=== PATIENT | female | born 1950 | race Caucasian/White ===

== ENCOUNTER 2019-02-01 01:35 | Emergency (ER) | payer BC, MEDICARE, OTHER ==
[2019-02-01 02:12] LABS: BASOPHILS # (AUTO) 0.1 10^3/uL (0.0-0.1); BASOPHILS % (AUTO) 0.7 %; EOSINOPHILS # (AUTO) 0.4 10^3/uL (0.0-0.7); EOSINOPHILS % (AUTO) 4.8 %; HGB - HEMOGLOBIN 12.2 g/dL (12.0-16.0); LYMPHOCYTES # (AUTO) 2.5 10^3/uL (1.5-3.5); LYMPHOCYTES % (AUTO) 28.7 %; MEAN CORPUSCULAR HEMOGLOBIN 28.6 pg (27.0-31.0); MEAN CORPUSCULAR HGB CONC 33.1 g/dL (32.0-36.0); MEAN CORPUSCULAR VOLUME 86.6 fL (81.0-99.0); MEAN PLATELET VOLUME 10.4 fL (7.9-10.8); MONOCYTES # (AUTO) 0.7 10^3/uL (0.0-1.0); MONOCYTES % (AUTO) 8.3 %; NEUTROPHILS % (AUTO) 57.2 %; PLT - PLATELET COUNT 232 10^3/uL (130-450); RED BLOOD COUNT 4.26 10^6/uL (4.20-5.40); RED CELL DISTRIBUTION WIDTH 13.2 % (12.0-15.0); WHITE BLOOD COUNT 8.7 x10^3/uL (4.8-10.8)
--- NOTE | 2019-02-01 02:28 | XRAY Report ---
Reason: chest pain Procedure Date: 02/01/2019 Accession Number: [id number] / [id number] Procedure: XR - Chest 1 View X-Ray CPT Code: 41002 Final Report FULL RESULT: EXAM: CHEST RADIOGRAPHY EXAM DATE: 02/01/2019 02:23 AM. CLINICAL HISTORY: Chest pain. COMPARISON: None. TECHNIQUE: 1 view. FINDINGS: Lungs/Pleura: No alveolar consolidation or pleural effusion seen. No pneumothorax. Mediastinum: Within exam limitations, the cardiomediastinal contour is normal. 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 IMPRESSION: 1. No acute abnormality seen in the chest. RADIA
[2019-02-01 02:48] LABS: ALBUMIN 3.4 g/dL (3.2-5.5); ALBUMIN/GLOBULIN RATIO 1.1 (1.0-2.2); BILIRUBIN,TOTAL 0.4 mg/dL (0.2-1.0); CALCIUM 8.8 mg/dL (8.5-10.3); CREATININE 0.7 mg/dL (0.4-1.0); TOTAL PROTEIN 6.4 g/dL (6.7-8.2)
--- NOTE | 2019-02-01 03:25 | ED Physician Documentation ---
PD HPI CHEST PAIN - Stated complaint Stated Complaint: CHEST PX - Chief complaint Chief Complaint: Cardiac - History obtained from History obtained from: Patient - History of Present Illness Timing - onset: Last night Timing - onset during: Rest Timing - duration: Minutes Timing - details: Abrupt onset, Now resolved, Intermittant Pain level max: 3 Pain level now: 0 Quality: Tightness Location: Left chest Radiation: Jaw, Neck Improved by: Nothing Worsened by: Other (no exacerbating factors) Associated symptoms: Shortness of air (mild). No: Diaphoresis, Nausea, Feeling faint / dizzy Similar symptoms before: Has not had sx before Recently seen: Not recently seen Review of Systems Constitutional: reports: Reviewed and negative Cardiac: reports: Chest pain / pressure. denies: Palpitations, Pedal edema Respiratory: reports: Dyspnea (mild, with chest pain). denies: Cough GI: reports: Reviewed and negative : denies: Dysuria, Frequency Musculoskeletal: reports: Reviewed and negative Neurologic: reports: Reviewed and negative PD PAST MEDICAL HISTORY - Past Medical History Past Medical History: Yes GI: Other Other Past Medical History: Bilat Breast CA - Past Surgical History Past Surgical History: Yes Ortho: Hip replacement - Social History Does the pt smoke?: No Smoking Status: Never smoker Does the pt drink ETOH?: Yes ETOH Use: Wine, Liquor Does the pt have substance abuse?: No - Immunizations Immunizations are current?: Yes - POLST Patient has POLST: No PD ED PE NORMAL - Vitals Vital signs reviewed: Yes - General General: Alert and oriented X 3, No acute distress, Well developed/nourished - Cardiac Cardiac: RRR, No murmur, No gallop, No rub - Respiratory Respiratory: No respiratory distress, Clear bilaterally - Abdomen Abdomen: Soft, Non tender - Derm Derm: Normal color, Warm and dry - Extremities Extremities: No edema Results - Vitals Vitals: Oxygen O2 Source Room air - EKG (time done) No standard instances Rate: Rate (enter#) (70) Rhythm: NSR [place]: Normal Intervals: Normal NC QRS: Normal Ischemia: Normal ST segments - Labs Labs: Laboratory Tests 02/01/19 02/01/19 02/01/19 02:03 02:03 02:03 WBC 8.7 RBC 4.26 Hgb 12.2 Hct 36.9 L MCV 86.6 MCH 28.6 MCHC 33.1 RDW 13.2 Plt Count 232 MPV 10.4 Neut # (Auto) 5.0 Lymph # (Auto) 2.5 [place] # (Auto) 0.7 Eos # (Auto) 0.4 Baso # (Auto) 0.1 Absolute Nucleated RBC 0.00 Nucleated RBC % 0.0 Sodium 141 Potassium 3.9 Chloride 107 Carbon Dioxide 25 Anion Gap 9.0 BUN 17 Creatinine 0.7 Estimated GFR (MDRD) 83 L Glucose 108 H Calcium 8.8 Total Bilirubin 0.4 AST 16 ALT 20 Alkaline Phosphatase 40 L Troponin I High Sens < 2.3 L Total Protein 6.4 L Albumin 3.4 Globulin 3.0 Albumin/Globulin Ratio 1.1 Lipase 28 02/01/19 04:00 WBC RBC Hgb Hct MCV MCH MCHC RDW Plt Count MPV Neut # (Auto) Lymph # (Auto) [place] # (Auto) Eos # (Auto) Baso # (Auto) Absolute Nucleated RBC Nucleated RBC % Sodium Potassium Chloride Carbon Dioxide Anion Gap BUN Creatinine Estimated GFR (MDRD) Glucose Calcium Total Bilirubin AST ALT Alkaline Phosphatase Troponin I High Sens < 2.3 L Total Protein Albumin Globulin Albumin/Globulin Ratio Lipase - Rads (name of study) chest xray Radiology: Prelim report reviewed, See rad report PD MEDICAL DECISION MAKING - ED course Complexity details: reviewed results, re-evaluated patient, considered differential, d/w patient Departure - Departure Disposition: 01 Home, Self Care Clinical Impression: Chest pain Condition: Good Instructions: ED Chest Pain Atypical Unkn Cause Discharge Date/Time: 02/01/19 05:03
[2019-02-01 05:02] VITALS: BP 134/80
== END 2019-02-01 05:03 | disposition home or self-care (01) ==
LOC: ED 01:35
DX: R07.89 Other chest pain (principal); R06.02 Shortness of breath
CPT/HCPCS: 36415; 71045; 80053; 83690; 84484; 85025; 93005; 99284

== ENCOUNTER 2021-08-17 11:35 | Outpatient (CLI) | payer BC, MEDICARE, OTHER ==
[2021-08-17 12:25] VITALS: BP 142/76
--- NOTE | 2021-08-17 12:25 | SLEEP CARE CONSULTATION ---
Information from patient questionnaire entered by Acacia Garland. I have reviewed and concur with the information entered by Acacia Garland. This document represents the service I personally performed and the decisions made by me, Akhil Capps MD, [facility]. History of Present Illness Service Date and Time: 08/17/2021 1135 Reason for Visit: New patient (INITIAL, FIRST COMPLIANCE, 05/18 SETUP, RESMED) Date of Onset: YEARS, NO SYMPTOMS WITH CPAP Usual bedtime: 11PM-2AM Time it takes to fall asleep: ABOUT 15 MINUTES Snores at night: Yes (NO SNORING WITH CPAP) Observed to quit breathing while asleep: No Sleeps alone due to snoring: No Number of times waking at night: 1 WITH CPAP Reasons for waking at night: reports: Bathroom Toss, Turn, or Twitch while sleeping: Yes (VERY LITTLE WITH CPAP) Recalls having dreams: Yes Usually gets out of bed at: 830-10AM Feels refreshed in the morning: Yes Morning headache: No Sleepy or fatigued during the day: No Ever fallen asleep while driving: No Takes day naps: No (RARELY SINCE CPAP) Dreams during day naps: No Prior sleep studies: Yes ([facility] ) Year and Where: [facility], 22 Additional HPI information: I have the pleasure of seeing Ms. Ibarra today regarding obstructive sleep apnea. As you know, she is a 71-year-old lady who was diagnosed with the sleep- disordered breathing at [facility] in [place]. On her first in-laboratory polysomnography on 04/07, the AHI was per Medicare standards was only 2.4. The sleep study was repeated 10 days later with her sleeping only on her back and the AHI went up to 20.5. Even though she normally does not sleep on her back at home, she was prescribed a CPAP device. The compliance data show usage in 59 out of the past 60 nights, averaging 8.6 hours a night. The residual AHI is 1.0 and average air leak is 0.2 L/minute. Her CPAP is set between 4 and 14 cmH2O. She wears a [employer]ics DreamWear nasal cushion mask. She reports some improvement in her fatigue and complete resolution of her snore. The equipment came from [employer]. - Parasomnia Symptoms Ever been unable to move upon waking from sleep: No Walks in sleep: No Talks in sleep: No Ever acted out dreams in sleep: No Ever felt weak in the knees when startled or emotional: No Bothered by creepy, crawly, restless sensations in legs: No Problems with memory or concentration: Yes (SOMETIMES) Subjective Initial [place] Sleepiness Scale score: 6 Past Medical History Past Medical History: reports: Claustrophobia, Arthritis, Anxiety, Asthma, Depression, Attention deficit, Other (ARTHRITIC HIP) Social History The patient's occupation is a RE. Patient is Single and lives in [place]. Have you smoked in the past 12 months: No Alcohol use: Yes Alcohol amount and frequency: WINE, 1-2 GLASSES 2-3 TIMES PER WEEK Caffeine use: Yes Caffeine amount and frequency: 1 CUP DAILY Family History Family Hx Sleep Apnea: Sibling: Snoring, Sleep apnea - Treated, Sleep apnea - Untreated Allergies and Home Medications Known drug allergies: Yes (CODEINE ) Drug allergies reviewed: Yes Home medication list reviewed: Yes Review of Systems Cardiovascular: reports: high blood pressure, leg or foot swelling Respiratory: denies: shortness of breath, wheeze, sputum production, chronic cough, other Gastrointestinal: denies: heartburn, difficulty swallowing, nausea, vomitting, diarrhea, abdominal pain, other Urinary: denies: incontinence, frequency, urgency, impotence, other Neurological: denies: headaches, seizure, head trauma, disorientation, speech dysfunction, gait or balance problems, fainting or unconsciousness, other Psychiatric: reports: Attention Deficit Hyperactivity, anxiety, depression, claustrophobia Ear/Nose/Throat: reports: nasal congestion (SOMETIMES), sinus problems (SOMETIME S), wisdom teeth removed Endocrine: reports: sluggishness (BETTER SINCE CPAP ) Musculoskeletal: reports: joint pain, muscle pain or cramping, mobility problems Immunologic: denies: sneezing, rash, itching, allergies to food or environment, other Physical Exam Vital signs obtained and entered by: DANN, [employer] Blood Pressure: 142/76 (left arm ) Cuff size: regular Heart Rate: 80 O2 Saturation: 97 Height: 5 ft 3 in Weight: 194 lb Body Mass Index: 34.3 BMI Classification: Obese HEENT: No craniofacial malformation Nostrils: patent to airflow Turbinates: normal Septum: midline Mouth and throat: narrow oropharynx Soft palate: long Hard palate: normal Uvula: normal Uvula visualization: 50% Mallampati Class II Tongue: normal in size Tonsils: small Chin and jaw: normal size and position Neck: normal w/o lymphadenopathy or thyromegaly Heart: regular rate and rhythm, murmur Lungs: clear bilaterally Extremities: no edema or clubbing Neurologic: intact Impression and Plan IMPRESSION: 1. Obstructive Sleep Apnea-Hypopnea Syndrome, as previously diagnosed. The sleep-disordered breathing appears to be positional. She has good CPAP compliance. The current pressure setting appears effective and comfortable. I informed her that if she is sure she does not sleep on her back at home, she may use the CPAP on as needed basis. Plan: 1. Continue with autoCPAP set at 4 14 cmH2O. 2. Avoid sleeping supine if not using her CPAP. 3. Try to lose weight. 4. Return for follow up in a year or earlier if there is any problem. Counseling Topics: Weight control Follow up with Sleep Care in: 1 year Visit Type: In Office Time Spent with Patient (minutes): 20 Provider Statement: I spent 100% of the Face to Face Visit with the patient with greater than 50% spent counseling the patient and coordination of care.
== END 2021-08-17 11:36 | disposition home or self-care (01) ==
LOC: SC 11:35
PROVIDERS: ATTEND Internal Medicine Pulmonary Disease
DX: G47.33 Obstructive sleep apnea (adult) (pediatric) (principal); E66.9 Obesity, unspecified; Z68.34 Body mass index [BMI] 34.0-34.9, adult
CPT/HCPCS: 99202; 99212

== ENCOUNTER 2021-12-26 06:51 | Emergency (ER) | payer MEDICARE, BC, OTHER ==
--- NOTE | 2021-12-26 06:59 | ED Physician Documentation ---
PD HPI UPPER EXT INJURY - Stated complaint Stated Complaint: RT WRIST PX - Chief complaint Chief Complaint: Ext Problem - History obtained from History obtained from: Patient - History of Present Illness Location: Right, Hand (bse of thumb) Type of injury: Other (She did do some baking last night with repetitive mixing of the batter. No pain or impact at the time.). No: Fall, Twist Where injury occurred: Home Timing - onset: Today (She did the baking last evening but did not have pain at that time. Onset of pain this morning, noted upon awakening. She thought that the vein overlying the area was tender. Call Nurseline and advised to come to ER for concern of "a clot".), Last night Timing - details: Abrupt onset, Still present Worsened by: Moving, Palpating (movement of base of thumb hurts. Tender in snuffbox and distal to base of thumb.) Associated symptoms: No: Weakness, Numbness Review of Systems Constitutional: denies: Fever, Chills Skin: denies: Rash, Lesions Neurologic: denies: Focal weakness, Numbness PD PAST MEDICAL HISTORY - Past Medical History Cardiovascular: None Endocrine/Autoimmune: None GI: Other Musculoskeletal: None, Osteoarthritis - Past Surgical History Past Surgical History: Yes Ortho: Hip replacement - Present Medications Home Medications: Ambulatory Orders Medication Instructions Recorded Confirmed ALPRAZolam [Xanax] 0.25 mg PO Q6H 12/26/21 12/26/21 Beclomethasone 40 Mcg [Qvar 40] 1 - 2 puffs INH Q6HR PRN 12/26/21 12/26/21 Tamoxifen [Nolvadex] 20 mg PO DAILY 12/26/21 12/26/21 Turmeric 400 mg PO DAILY 12/26/21 12/26/21 - Allergies Allergies/Adverse Reactions: Allergies Allergy/AdvReac Type Severity Reaction Status Date / Time codeine AdvReac Nausea Verified 12/26/21 07:00 - Social History Does the pt smoke?: No Smoking Status: Never smoker Does the pt drink ETOH?: Yes Does the pt have substance abuse?: No - Immunizations Immunizations are current?: Yes Immunizations: TDAP current <10years - POLST Patient has POLST: No PD ED PE NORMAL - Vitals Vital signs reviewed: Yes - General General: Alert and oriented X 3, No acute distress, Well developed/nourished - Derm Derm: Normal color, Warm and dry - Extremities Extremities: Other (Dorsal base of the first metacarpal up to the base of the thumb MCP with tenderness along the tendon. Mild swelling noted in the snuffbox area. The tendon hurts with passive flexion of the thumb and active extension. A vein overlying the area is soft without warm/red or tenderness itself.) - Neuro Neuro: Alert and oriented X 3, No motor deficit, No sensory deficit Results - Vitals Vitals: Vital Signs - 24 hr 12/26/21 06:55 Temperature 36.3 C L Heart Rate 71 Respiratory 16 Rate Blood Pressure 140/58 H O2 Saturation 98 Oxygen O2 Source Room air PD MEDICAL DECISION MAKING - ED course Complexity details: considered differential (c/w tendonitis of the EPL. Does not appears phlebitis in the area. ), d/w patient Departure - Departure Disposition: 01 Home, Self Care Clinical Impression: Extensor pollicis longus tendinitis Condition: Stable Record reviewed to determine appropriate education?: Yes Instructions: De [place]erv[place] Tenosynovitis Follow-Up: Orthopedic Care [Provider Group] Comments: The vein in the area does not seem inflamed nor clotted. This symptoms would be consistent with an irritation of the extensor tendon of the thumb. This is a relatively common process or problem. It will typically be treated with some immobilization of the thumb and also some anti-inflammatories. Gentle stretching of the thumb however is still good so does not get too stiff. Have the brace off periodically with gentle motion. You can have the brace off when rested as well. Predominantly wear it when active so there is less repetitive motion at the tendon. Consider adding some anti-inflammatory such as naproxen or ibuprofen 2-3 times daily for the next several days. This typically will improve over a few days. Occasionally will be more persistent and may require other treatments or even injection of an anti- inflammatory in the tendon. Follow-up with orthopedics if its not improved over the next week or so.
[2021-12-26 07:00] VITALS: BP 140/58
[2021-12-26] MEDS ORDERED: NAPROXEN 250 MG TABLET PO STA (07:09)
== END 2021-12-26 07:19 | disposition home or self-care (01) ==
LOC: ED 06:51
DX: M77.8 Other enthesopathies, not elsewhere classified (principal)
CPT/HCPCS: 99282; A9270